=== PATIENT | male | born 1995 | race Caucasian/White ===

== ENCOUNTER 2025-03-12 22:41 | Emergency (ER) | payer SELFPAY ==
[2025-03-12] MEDS: Take Home: Sulfamethoxazole/Trimethoprim 800-160 MG Tab, 6 Tab Pack PO ONE (23:10)
== END 2025-03-12 23:14 | disposition home or self-care (01) ==
LOC: VM.ED 22:41 → SUPCPDRO 22:41 → VM.ED 23:14
DX: L72.3 Sebaceous cyst (principal)
CPT/HCPCS: 10060; 87070; 99283; A9270; 87077